=== PATIENT | male | born 2000 ===

== ENCOUNTER 2019-04-29 12:03 | Emergency (ER) | payer SELFPAY ==
[2019-04-29 13:59] VITALS: BP 113/70
--- NOTE | 2019-04-29 14:02 | Emergency Department Report ---
Chief Complaint: Recheck/Abnormal Lab/Rx Stated Complaint: FLU SYM Time Seen by Provider: 04/29/19 13:57 - HPI History of Present Illness: 19 y/o male comes in running nose and intermittent cough. Denies any fever, chill no nausea or vomiting. Has no taking any otc medications. - Exam Physical Exam: Exam: AxO times 3 Non toxic NAD Chest cta Heart RRR Ambulating well. MSE screening note: Focused history and physical exam performed. Due to findings the following was ordered: 19 y/o male comes in running nose and intermittent cough. Denies any fever, chill no nausea or vomiting. ED Disposition for MSE Clinical Impression: Viral syndrome Disposition: Z MED SCREENING EXAM-LEFT Is pt being admited?: No Does the pt Need Aspirin: No Condition: Stable Instructions: Viral Syndrome (ED) Additional Instructions: Take OTC medication for cold like claritin or zyrtec
== END 2019-04-29 14:35 | disposition left against medical advice (07) ==
LOC: ED 12:03
DX: B34.9 Viral infection, unspecified (principal)
CPT/HCPCS: 99282